=== PATIENT | female | born 2000 | race Caucasian/White ===

== ENCOUNTER 2023-07-30 21:07 | Emergency (ER) | payer MEDICAID ==
[~2023-07-30] VITALS: Ht 157.5 cm; Wt 55.4 kg
[2023-07-30] MEDS ORDERED: ibuprofen tablet 400 MG TABLET PO ONE (23:35)
[2023-07-30] MEDS ORDERED: acetaminophen 325mg tablet PO ONE (23:35)
[2023-07-30] MEDS ORDERED: ondansetron 4mg rapidly disintigrating tab PO ONE (23:35)
[2023-07-31 00:47] LABS: STREP A SCREEN NEGATIVE (Neg)
[2023-07-31 02:10] LABS: BILIRUBIN,URINE SMALL (Neg); CLARITY,URINE CLOUDY (Clear); COLOR,URINE YELLOW (Yellow); GLUCOSE, URINE NEGATIVE (Neg); KETONES,URINE TRACE mg/dl (Neg); LEUKOCYTE ESTERASE ,URINE TRACE (Neg); NITRITES, URINE NEGATIVE (Neg); OCCULT BLOOD,URINE MODERATE (Neg); PROTEIN,URINE 30 mg/dl (Neg); UROBILINOGEN,URINE 0.2 E.U/dL (0.2-1.0)
[2023-07-31 02:21] LABS: UA COLLECTION TYPE CLN CATCH MIDSTREAM
[2023-07-31 02:22] LABS: BACTERIA,URINE 4+ /HPF (Neg); MUCUS STRANDS MANY /LPF (Neg); SQUAMOUS EPITHELIAL CELL,UR MANY /LPF (FEW)
[2023-07-31 02:27] LABS: TRANSITIONAL EPI CELLS,URINE MODERATE /HPF
[2023-07-31] MEDS ORDERED: CEPH250T PO (02:42)
[2023-07-31] MEDS ORDERED: cephalexin 250mg capsule PO ONE (02:45)
[2023-07-31 03:31] VITALS: BP 109/53; PULSE 69; RESP 18; TEMP 97.8; O2SAT 99
== END 2023-07-31 03:33 | disposition home or self-care (01) ==
LOC: ER 21:09
DX: J06.9 Acute upper respiratory infection, unspecified (principal); R11.0 Nausea; J02.9 Acute pharyngitis, unspecified; Z79.2 Long term (current) use of antibiotics
CPT/HCPCS: 81001; 87081; 87502; 87503; 87880; 99284